=== PATIENT | female | born 1995 | race Caucasian/White ===

== ENCOUNTER 2024-12-04 13:01 | Emergency (ER) | payer OTHER, SELFPAY ==
[2024-12-04 13:05] VITALS: BP 151/105
--- NOTE | 2024-12-04 13:57 | ED.SKININJ ---
HPI-Injury
General
Chief Complaint: Skin Problem
Source: patient
Exam Limitations: none
Time Seen by Provider: 12/04/24 13:24
History of Present Illness-Injury
Initial Injury comments:
29-year-old female presents with about a weeks worth of itchy rash to the arms trunk and legs. No associated fever or URI symptoms. No new medications. She was doing yard work for the past month and thought she acquired poison georgina. She was seen
at an urgent care was started on prednisone. She took 40 mg for 4 days and now is on 30 mg daily without any relief. No fever. No involvement of the mouth. She denies any involvement of palms or soles. No other complaints at this time
Phy Exam
Physical Exam
Physical Exam:
General: Well-appearing female nontoxic no acute respiratory distress
HEENT normocephalic posterior pharynx without erythema or exudate no oral lesions neck is supple
Skin: Erythematous rash over the trunk arms and legs slightly raised there are areas with central erythema surrounded by a ring of cleared skin and a border of erythema. No involvement of the palms or soles. No underlying fluctuance induration or
drainage
Extremities: No cyanosis
Course
Vital Signs
Initial and Last Documented VS:
Initial Vital Signs
Temp Pulse Resp BP Pulse Ox
98.0 F 107 16 151/105 98
12/04/24 13:05 12/04/24 13:05 12/04/24 13:05 12/04/24 13:05 12/04/24 13:05
Last Documented Vital Signs
Temp Pulse Resp BP Pulse Ox
98.0 F 107 16 151/105 98
12/04/24 13:05 12/04/24 13:05 12/04/24 13:05 12/04/24 13:05 12/04/24 13:05
MDM/Problems Addressed
Differential Diagnosis Includes:
Pruritic rash consider viral illness versus allergy mediated versus erythema multiforme. No underlying signs of abscess. Minimal improvement with prednisone.
*Critical Care Note
Total Time (30-74mins, 75-104mins- exclusive of procedures): Not Applicable
Update Note
Update Note:
Discussed findings with emergency room attending as well as sent pictures to dermatology. Question possible urticarial multiforme. Continue to recommend prednisone taper and antihistamines. Triamcinolone cream was prescribed as well
ED Attending Note
-
Portions of this chart may have been created with voice recognition software.� Occasional wrong word or��sound alike� substitutions may have occurred due to the inherent limitations of voice recognition software.
Discharge Plan
Departure
Patient Disposition: Home (Routine Discharge)
Date of Disposition: 12/04/24
Time of Disposition: 14:05
Patient with high blood pressure during this ER visit?: No
Discharge Problem:
Rash
Instructions: Skin Rash (DC)
Prescriptions:
New
triamcinolone acetonide 0.1 % cream
1 applic topical BID Qty: 453.6 0RF
Referrals:
Astrid Abraham, DO [Active] -
Activity Restrictions/Additional Instructions:
Use cream twice a day. Continue steroid taper. Continue with antihistamines and follow-up with dermatology otherwise. Return if worse
Interventions
Interventions:
*Risk Screen - Suicide Last Done: 12/04/24 13:31
*General Assessment Last Done: 12/04/24 13:31
*Neglect/Abuse Screening Last Done: 12/04/24 13:31
*ED- Fall Risk Assessment Last Done: 12/04/24 13:31
*ED COVID-19 Vaccine History Last Done: 12/04/24 13:31
ED-Skin Assessment Last Done: 12/04/24 13:29
Discharge Date and Time
Print Language: CYMRO
[2024-12-04] MEDS: DECADRON 10 MG PO (14:20)
== END 2024-12-04 14:43 | disposition home or self-care (01) ==
LOC: EMR 13:01
PROVIDERS: EMERGENCY PHYSICIAN Emergency Medicine; FAMILY PHYSICIAN Nurse Practitioner Adult Health
DX: R21 Rash and other nonspecific skin eruption (principal)
CPT/HCPCS: 99282